=== PATIENT | female | born 1935 | race African-American/Black ===

== ENCOUNTER 2016-10-11 11:05 | Inpatient (IN) | payer MEDICARE ==
[~2016-10-11] VITALS: Ht 160 cm; Wt 59.1 kg
--- NOTE | ~2016-10-11 | 2DMMODE ---
[facility] [place] [address] 2 D/M-MODE ECHOCARDIOGRAM Name: JAQUAN BOURGEOIS Room #: 306-P [facility] IN .#: [id number] Admission: 10/11/16 Attend Phys: Kenneth Butterfield MD Discharge: Date of : 39 Date of Service: 10/12/16 1208 Report #: [id number] THIS REPORT FOR: //name// Transthoracic Echocardiography Ordering physician: Sumeet Montalvo Referring physician: Dameon Callahan Francisco J. Creative Designer: JASON Horton Indications/History: CHF, Cardiomyopathy. BP: 104 / HR: 73bpm Height: 62in Weight: 133.7lb 71 Study data: M-mode, complete 2D, complete spectral Doppler, and color Doppler. Location: Bedside. Routine. Image quality was good. 2D measurements Normal Normal LVID ED 61mm 36-57 IVS ED 9.4mm 6-11 LVID ES 53.3mm 23-40 LVPW ED 9.5mm 6-11 LA volume 40ml/m2 16-28 AoRoot diam 25.3mm 21-37 index ED LVOT diameter 17mm 18-23 Findings: Left ventricle: The cavity size was dilated. Wall thickness was normal. Systolic function was severely reduced. The estimated ejection fraction was in the range of 20% to 25%. Severe diffuse hypokinesis. Right ventricle: The cavity size was dilated. Systolic function was low normal by visual assessment. Ventricular septum: Paradoxical motion. Right atrium: The atrium was dilated. Left atrium: The atrium was dilated. Volume index: 40ml/m2 (S). Aortic valve: Trileaflet; mildly thickened, mildly calcified leaflets. Doppler: There was no stenosis. Mild to moderate regurgitation. Peak velocity: 111.4cm/s [facility] [address] [place] [address] 2 D/M-MODE ECHOCARDIOGRAM Name: JAQUAN BOURGEOIS Room #: 306-P [facility] IN M.R.#: [id number] Admission: 10/11/16 Attend Phys: Kenneth Butterfield MD Discharge: Date of : 39 Date of Service: 10/12/16 1208 Report #: [id number] (S). Mitral valve: Mildly calcified annulus. Doppler: There was no evidence for stenosis. Moderate to severe regurgitation. Peak E-wave velocity: 157.7cm/s. Peak gradient: 9.9mm Hg (D). Peak A-wave velocity: 128.5cm/s. Tricuspid valve: Structurally normal valve. Doppler: There was no evidence for stenosis. Severe regurgitation. Regurgitant peak velocity: 244.4cm/s. Peak RV-RA gradient: 24mm Hg (S). Pulmonic valve: Structurally normal valve. Doppler: There was no evidence for stenosis. Mild regurgitation. Pericardium: There was no pericardial effusion. Pleura: There was a moderate-sized left pleural effusion. Aorta: Aortic root: The aortic root was normal in size. Pulmonary artery: Systolic pressure was estimated to be 34mm Hg. Diastolic function: Doppler parameters are consistent with an irreversible restrictive pattern, indicative of decreased left ventricular diastolic compliance and/or increased left atrial pressure (grade 4 diastolic dysfunction). Systemic veins: Inferior vena cava: The vessel was dilated; the respirophasic diameter changes were blunted (< 50%). Conclusions 1. Left ventricle: The cavity size was dilated. Wall thickness was normal. Systolic function was severely reduced. The estimated ejection fraction was in the range of 20% to 25%. Severe diffuse hypokinesis. 2. Ventricular septum: Paradoxical motion. 3. Right ventricle: The cavity size was dilated. 4. Right atrium: The atrium was dilated. 5. Left atrium: The atrium was dilated. 6. Aortic valve: Trileaflet; mildly thickened, mildly calcified leaflets. Mild to moderate regurgitation. 7. Mitral valve: Mildly calcified annulus. Moderate to severe regurgitation. 8. Pulmonic valve: Mild regurgitation. 9. Tricuspid valve: Severe regurgitation. 10. Pericardium, extracardiac: There was a moderate-sized left pleural effusion. 11. Pulmonary arteries: Systolic pressure was estimated to be 34mm Hg. [facility] [place] [address] 2 D/M-MODE ECHOCARDIOGRAM Name: VIVEK BOURGEOISDENEEN Room #: 306-P [facility] IN ..#: [id number] Admission: 10/11/16 Attend Phys: Kenneth Butterfield MD Discharge: Date of : 39 Date of Service: 10/12/16 1208 Report #: [id number] 12. Inferior vena cava: The vessel was dilated; the respirophasic diameter changes were blunted (< 50%). <ELECTRONICALLY SIGNED> By: Sumeet Montalvo MD 10/12/169 07 28 Suemet Montalvo MD /yas
--- NOTE | ~2016-10-11 | EKG ---
[place] [address] [place] [address] ELECTROCARDIOGRAM REPORT Name: JAQUAN BOURGEOIS Room #: [facility].#: [id number] Admission: Attend Phys: Discharge: Date of : 37 Report #: [id number] THIS REPORT FOR: //name// [facility] ED Test Date: 2016-10-11 Test Time: 11:48:43 Pat Name: JAQUAN BK Department: Room: Gender: F Supervisor Laboratory Animal Facility: [facility] : 1935 Requested By: Pedro Andrade Order Number: [id number] MD: Gregg Singh Measurements Intervals [place] Rate: 69 P: 84 [place]: 141 QRS: 16 QRSD: 158 T: QT: 459 QTc: 492 Interpretive Statements Sinus rhythm Probable left atrial enlargement Left bundle branch block Compared to ECG 05/11/2016 15:16:31 No significant changes Electronically Signed On 10-11-2016 12:12:51 POTTERY MACHINE OPERATOR by Gregg Singh [email or web address] <ELECTRONICALLY SIGNED> By: Gregg Singh MD 10/11/16 1212 1148 1148 MD DAVID Wilkins
--- NOTE | ~2016-10-11 | HC ---
[facility] [place] [address] CONSULTATION Name: JAQUAN BOURGEOIS Room #: 306-P ADM IN M.R.#: [id number] Admission: 10/11/16 Attend Phys: Kenneth Butterfield MD Discharge: Date of : 37 Report #: [id number] THIS REPORT FOR: //name// CC: Dameon Butterfield HISTORY OF PRESENT ILLNESS: This is a very pleasant female who has a history of cardiomyopathy and an ejection fraction of 25% previously, noted having profound lower extremities edema to the point of having weeping lesions. She stated she has also noted her belly increasing. She also notes the right kidney over the last several weeks of the 20 pounds, but noted that it is due to gradual increase in weight over that time interval. She describes not having any specific symptomatology, but just not feeling well and not noted exactly what it was until become profoundly short of breath and sought medical attention. She apparently has been seen by Dr. Anderson in the past and has a history of cardiomyopathy with an ejection fraction of less than 25%. She has no syncope or near syncope. No palpitations. She has never had a discussion in the past concerning not improved left ventricular ejection fraction and indications for biventricular pacing or ICD. PAST MEDICAL HISTORY: 1. Cardiomyopathy as stated above. 2. Hypertension. 3. Heart failure with reduced ejection fraction, not optimized on medications, missing spironolactone. 4. Dyslipidemia. MEDICATIONS: At home were losartan, bethanechol, Flomax, Lasix, Klor-Con, Coreg, Celexa, Lipitor. ALLERGIES: No known drug allergies. PAST SURGICAL HISTORY: Significant for cervical disk removal. SOCIAL HISTORY: The patient does consume alcohol socially. Does not use recreational drugs and is not a smoker. REVIEW OF SYSTEMS: Except for symptoms previously mentioned and those commensurate with comorbid state, the 10-point review of systems is negative. DIAGNOSTIC DATA AND LABORATORY STUDIES: The electrocardiogram demonstrated normal sinus rhythm, nonspecific ST-T wave changes. Laboratory demonstrates potassium of 4.0. BUN and creatinine are 27 and 0.1. Troponin is less than 0.04. BNP is 15,145. H and H is 13.6 and 42.5 with a platelet count of 136,000. [address] [address] CONSULTATION Name: JAQUAN BOURGEOIS Room #: [address] [place] [address] [place] .R.#: [id number] Admission: 10/11/16 Attend Phys: Kenneth Butterfield MD Discharge: Date of : 37 Report #: [id number] RADIOLOGIC: Chest x-ray demonstrates cardiomegaly with bilateral effusion and an infiltrate is noted. PHYSICAL EXAMINATION: GENERAL: Well developed, well nourished female resting comfortably in no acute distress. VITAL SIGNS: Noted and reviewed in the chart. HEENT: Normocephalic, atraumatic. Pupils are equal, round, reactive to light and accommodation. Extraocular muscles are intact. Sclerae and conjunctivae are anicteric. NECK: JVD is normal. Carotid upstrokes are bilaterally symmetrical. No bruits are heard. No thyromegaly. No lymphadenopathy. LUNGS: Clear to auscultation. No wheezes, rhonchi or crackles. No CVA tenderness. CARDIAC: Demonstrates a regular rhythm. Normal first and second heart sounds. Systolic murmur from the base to apex axilla was noted. ABDOMEN: Distended succussion wave is noted. Bowel sounds are present. Enlarged liver is noted 2 cm below the right costal margin. EXTREMITIES: Moderate to severe bilateral lower extremity edema which is pitting from the knees to the toes. NEUROLOGIC: Cranial nerves 2-12 are grossly normal and symmetrical. PSYCHIATRIC: Alert, oriented with normal affect. SKIN: Warm and dry. IMPRESSION: 1. Congestive heart failure, decompensated. The patient is to optimize the medications. I do not see any reason why she is not on spironolactone and we may need to add that. In addition to this, the question of ICD placement or biventricular pacer if she fulfills criteria of appropriate discussion. Diurese more slowly at the present time as you are doing and become more vigorous with the diuresis and discuss this further with the patient. 2. Heart failure with reduced ejection fraction. Significant left ventricular function is noted, will need to optimize meds as stated above. 3. Dyslipidemia. Discussed [employer] step 1 diet. She does voice understanding. 4. Hypertension. Need to make sure that her blood pressure is adequately controlled. With ejection fraction now low, need to make sure the systolic pressures are under 120 and preferably under 110. We will need to optimize meds to achieve these goals. <ELECTRONICALLY SIGNED> By: Sumeet Montalvo MD 10/12/16 2224 [id number] Sumeet Montalvo MD /nt
[~2016-10-11 11:05] MED LIST: ACETAMINOPHEN325 M1 PO; ALEVE220 MG PO; ASPIR 8181 MG PO; ATACAND32 MG; ATACAND8 MG; ATENOLOL 25 MG25 M1 PO; ATENOLOL 50 MG50 M1 PO; CARVEDILOL25 MG PO; FLOMAX0.4 MG PO; KLOR-CON 1010 MEQ PO; LASIX 20 MG TAB20 MG PO; LIPITOR20 MG PO; LOSARTAN POTAS100 MG PO; MEGESTROL ACETA40 MG PO; MIRALAX255 GM PO; NORFLEX100 MG PO; PREDNISONE 10 M10 MG; URECHOLINE 25 M25 MG PO; VALACYCLOVIR1000 MG PO; [UNRECOGNIZED DRUG - OTHER] PO
[2016-10-11 11:07] VITALS: BP 109/68
[2016-10-11] MEDS ORDERED: CELEXA10 MG PO (12:22)
[2016-10-11 12:45] LABS: HEMATOCRIT 42.5 % (37.0-47.0); HEMOGLOBIN 13.6 gm/dL (12.0-15.0); MCH 31.2 pg (26.0-34.0); MCHC 31.9 % (28.0-37.0); MCV 97.5 fL (80.0-100.0); PLATELET COUNT 136 thou/uL (150-400); RBC 4.36 mil/uL (4.20-5.00); RDW 16.4 % (10.5-14.5); WBC 4.9 thou/uL (4.0-11.0)
[2016-10-11 12:47] LABS: MANUAL DIFF YES
[2016-10-11 12:54] LABS: ANION GAP 9 mmol/L (7-16); BUN 27 mg/dL (7-18); CALCIUM 9.7 mg/dL (8.5-10.1); CHLORIDE 103 mmol/L (98-107); CO2 25 mmol/L (21-32); GLUCOSE 97 mg/dL (70-99); SODIUM 137 mmol/L (136-145)
[2016-10-11 13:07] LABS: NT-PRO BRAIN NAT PEPTIDE 15945 pg/mL (<300); TROPONIN-I < 0.04 ng/mL (<0.04-0.07)
[2016-10-11 13:09] LABS: ABSOLUTE NEUTROPHILS 3.2 thou/uL (1.4-8.2); ANISOCYTOSIS 1+; LARGE PLATELETS RARE; TOTAL CELL COUNT 100
[2016-10-11 15:08] VITALS: BP 115/70
[2016-10-11 15:22] VITALS: BP 121/67
[2016-10-11 19:25] VITALS: BP 107/69
[2016-10-11 20:00] VITALS: BP 111/64
[2016-10-12] VITALS: BP 94/58
[2016-10-12 01:05] LABS: HEMATOCRIT 39.8 % (37.0-47.0); HEMOGLOBIN 12.7 gm/dL (12.0-15.0); MCV 96.8 fL (80.0-100.0); RBC 4.11 mil/uL (4.20-5.00); RDW 16.3 % (10.5-14.5); WBC 4.6 thou/uL (4.0-11.0)
[2016-10-12 01:22] LABS: ALBUMIN 3.1 g/dL (3.4-5.0); CALCIUM 8.8 mg/dL (8.5-10.1); POTASSIUM 4.2 mmol/L (3.5-5.1); TOTAL BILIRUBIN 1.2 mg/dL (<0.1-1.0); TOTAL PROTEIN 6.3 g/dL (6.4-8.2)
[2016-10-12 04:00] VITALS: BP 117/73
[2016-10-12 08:20] VITALS: BP 104/71
[2016-10-12 16:05] VITALS: BP 114/67
[2016-10-12 20:00] VITALS: BP 111/69
[2016-10-13] VITALS (7 sets, daily range): BP systolic 106–127; BP diastolic 60–71
[2016-10-14 04:05] VITALS: BP 110/60
[2016-10-14 08:30] VITALS: BP 112/66
[2016-10-14 11:25] LABS: CALCIUM 9.2 mg/dL (8.5-10.1); CREATININE 1.2 mg/dL (0.6-1.3); MAGNESIUM 2.1 mg/dL (1.8-2.4); POTASSIUM 4.4 mmol/L (3.5-5.1)
[2016-10-14 16:35] VITALS: BP 114/68
[2016-10-14 20:13] VITALS: BP 98/59
[2016-10-15 04:04] VITALS: BP 125/73
[2016-10-15 06:03] LABS: CALCIUM 9.1 mg/dL (8.5-10.1); CREATININE 1.1 mg/dL (0.6-1.3); POTASSIUM 4.5 mmol/L (3.5-5.1)
[2016-10-15 07:50] VITALS: BP 114/65
[2016-10-15 13:58] VITALS: BP 99/51
[2016-10-15 19:32] VITALS: BP 99/68
[2016-10-16 04:19] VITALS: BP 110/66
[2016-10-16 05:43] LABS: HEMATOCRIT 39.1 % (37.0-47.0); HEMOGLOBIN 12.4 gm/dL (12.0-15.0); MANUAL DIFF YES; MCH 30.9 pg (26.0-34.0); MCHC 31.8 % (28.0-37.0); MCV 97.3 fL (80.0-100.0); PLATELET COUNT 119 thou/uL (150-400); RBC 4.01 mil/uL (4.20-5.00); RDW 16.3 % (10.5-14.5); WBC 4.7 thou/uL (4.0-11.0)
[2016-10-16 05:58] LABS: CALCIUM 9.1 mg/dL (8.5-10.1); CREATININE 1.1 mg/dL (0.6-1.3); MAGNESIUM 2.1 mg/dL (1.8-2.4); POTASSIUM 4.1 mmol/L (3.5-5.1)
[2016-10-16 06:25] LABS: ABSOLUTE NEUTROPHILS 2.9 thou/uL (1.4-8.2); ANISOCYTOSIS 1+; TOTAL CELL COUNT 100
[2016-10-16 06:26] LABS: LARGE PLATELETS RARE
[2016-10-16 08:01] VITALS: BP 100/67
[2016-10-16 14:51] VITALS: BP 110/67
[2016-10-16 20:00] VITALS: BP 110/62
[2016-10-17 06:34] LABS: CALCIUM 9.2 mg/dL (8.5-10.1); CREATININE 1.1 mg/dL (0.6-1.3); POTASSIUM 4.3 mmol/L (3.5-5.1)
[2016-10-17 09:25] VITALS: BP 104/66
[2016-10-17] MEDS ORDERED: COZAAR 50 MG TA50 M1 PO (11:54)
[2016-10-17] MEDS ORDERED: PROTONIX40 M2 PO (11:54)
[2016-10-17] MEDS ORDERED: SPIRONOLACTONE25 M1 PO (11:54)
[2016-10-17] MEDS ORDERED: MIRALAX17 GM PO (11:54)
[2016-10-17] MEDS ORDERED: LASIX 20 MG TAB20 MG PO (11:54)
[2016-10-17] MEDS ORDERED: COLACE100 MG PO (11:54)
[2016-10-17] MEDS ORDERED: ENOXAPARIN40 MG/0.1 SUBQ (11:54)
[2016-10-17 14:57] VITALS: BP 96/60
[2016-10-18 04:00] VITALS: BP 108/65
[2016-10-18 09:09] VITALS: BP 117/72
[2016-10-18 16:35] VITALS: BP 104/69
[2016-10-18 20:55] VITALS: BP 110/60
[2016-10-19 04:28] LABS: CALCIUM 8.9 mg/dL (8.5-10.1); CREATININE 1.2 mg/dL (0.6-1.3); POTASSIUM 4.5 mmol/L (3.5-5.1)
[2016-10-19 04:35] VITALS: BP 117/68
[2016-10-19 07:40] VITALS: BP 103/63
[2016-10-19 12:40] VITALS: BP 99/57
[2016-10-19 16:54] VITALS: BP 112/64
[2016-10-19 20:00] VITALS: BP 96/55
[2016-10-20 04:02] VITALS: BP 106/58
[2016-10-20 08:33] VITALS: BP 110/52
== END 2016-10-20 15:15 | DRG 292 ==
LOC: ER 11:05 → EROBS 14:06 → 3N 14:06
PROVIDERS: Emergency Medicine; Internal Medicine; Internal Medicine Endocrinology, Diabetes & Metabolism; Nurse Practitioner
DX: I11.0 Hypertensive heart disease with heart failure (principal); E44.1 Mild protein-calorie malnutrition; I50.43 Acute on chronic combined systolic (congestive) and diastolic (congestive) heart failure; F32.9 Major depressive disorder, single episode, unspecified; I42.9 Cardiomyopathy, unspecified; E78.5 Hyperlipidemia, unspecified; K59.00 Constipation, unspecified; Z98.890 Other specified postprocedural states; Z79.899 Other long term (current) drug therapy
CPT/HCPCS: 10096

== ENCOUNTER → 2018-12-16 | Outpatient (CLI) | payer MEDICARE ==
[~2018-12-16] MED LIST changes: +CELEXA10 MG PO; +COLACE100 MG PO; +COZAAR 50 MG TA50 M1 PO; +DEMADEX20 MG PO; +ENOXAPARIN40 MG/0.1 SUBQ; +ENTRESTO 49 MG1 EACH PO; +MIRALAX17 GM PO; +PROTONIX40 M2 PO; +SPIRONOLACTONE25 M1 PO
== END ==
LOC: RAD 14:54
DX: M79.89 Other specified soft tissue disorders (principal); R14.0 Abdominal distension (gaseous); J90 Pleural effusion, not elsewhere classified; I51.7 Cardiomegaly; I87.8 Other specified disorders of veins; J98.11 Atelectasis; M16.11 Unilateral primary osteoarthritis, right hip; Z96.642 Presence of left artificial hip joint

== ENCOUNTER 2018-12-21 15:09 | Inpatient (IN) | payer MEDICARE ==
[~2018-12-21] VITALS: Ht 160 cm; Wt 50.4 kg
--- NOTE | ~2018-12-21 | HC ---
[facility] [place] [address] [place] [address] CONSULTATION Name: JAQUAN BOURGEOIS Room #: 227-P ADM IN M.R.#: [id number] Admission: 12/21/18 ������������������ Attend Phys: Isac Gavin MD Discharge: ������������������ Date of : 37 Report #: [id number] THIS REPORT FOR: //name// CC: Isac Callahan DATE OF SERVICE: 12/23/2018 HISTORY OF PRESENT ILLNESS: The patient is an 83-year-old -[place] female who had a prior recent hip replacement in 08/2018 at [facility], complicated by congestive heart failure exacerbation and a cardiac arrest. She was treated in the ICU per report, not desired to go through an AICD, was apparently transferred to [facility] and gradually able to return back home on 11/17/2018. She has been at home, although at a limited level with her closely involved. She was readmitted at this time to [facility] with increased shortness of breath. Noted to have acute on chronic congestive heart failure, cardiomyopathy, acute renal insufficiency. She also has some abdominal bloating with abdominal ultrasound showing some small ascites, small bilateral pleural effusions, likely constipation with Gastroenterology involved. We are seeing her in rehabilitation medicine consultation. PAST MEDICAL HISTORY: As noted above. She has a history of hypertension, frequent falls, degenerative arthritis, acute renal insufficiency, chronic kidney disease stage IV, cervical disk removal in 2014. There is note of some history of spinal problems. PAST SURGICAL HISTORY: As noted above. MEDICATIONS: Please see the full medication listing. These include vitamins, herbals, and supplements per report. ALLERGIES: No known drug allergies. SOCIAL HISTORY: House, spouse, 2 steps in, 3 inside, had electric scooter and used a 4-wheeled walker, although the needed to help her whenever she was out, but she was not ambulating independently. She had a bath aide 3 times per week. REVIEW OF SYSTEMS: Frustrated with her current condition. No current complaints of chest pain, shortness of breath, abdominal discomfort. Did not offer any complaints of headaches. No fever or chills. No bowel or bladder changes. No other focal extremity pain complaints. Complains of overall generalized weakness. PHYSICAL EXAMINATION: [facility] [address] [place] [address] CONSULTATION Name: JAQUAN BOURGEOIS Room #: [address] [place] [address] [place] ..#: [id number] Admission: 12/21/18 ������������������ Attend Phys: Isac Gavin MD Discharge: ������������������ Date of : 37 Report #: [id number] GENERAL: An 83-year-old slender -Austrian female in no obvious distress. She is frustrated and rather negative in her comments. Defers some the answers to her . VITAL SIGNS: Temperature 97.9, pulse 70, respirations 18, blood pressure 107/53. She is alert. She appears appropriate. Follows basic 1 step commands. Facies are symmetric. HEENT: Otherwise appeared benign. EXTREMITIES: Functional range of motion of both upper extremities. Strength is grade 4- to 3+/5. DTRs are trace to 1. She does have some abdominal bloating as noted. Lower extremities, no focal calf swelling, 1+ distal lower extremity edema to 2+ bilateral lower extremity edema. I would grade her strength probably at 3+/5. Tone appeared to be intact. Sit to stand was min assist. Gait was mod assist, 2 steps handheld assistance. ASSESSMENT: An 83-year-old -Aust[place] female with the following problems: 1. Cardiac debilitation with medical complexity with generalized debilitation. 2. Acute on chronic systolic congestive heart failure. 3. Cardiomyopathy, status post cardiac arrest. She refuses AICD. 4. Renal insufficiency. 5. Status post recent hip replacement. 6. Degenerative arthritis. 7. History of frequent falls. PLAN: The patient has been living in the home setting with her closely involved. She has some gait problems, but has been closely assisting the patient and appears very open and motivated to try to get her back to the home setting if she is stronger. She does have multiple medical comorbidities. She certainly may be a candidate for a short acute in-hospital inpatient rehabilitation stay to further improve her strength, endurance and mobility issues while she is being concurrently monitored with her multiple medical issues with the multiple data governance consultant physicians that are following her including Internal Medicine, Cardiology, Geriatrics and Gastroenterology. They could continue to follow if patient were transferred over to the acute rehab hernandez. At this point, I am going to have the therapist continue to work with her and we will follow along with you regarding her rehab therapy needs. Thank you for asking us to assist in this patient's care. ��������������������������������������������� ���������������������������������������� By: ��������������������������������������������� 1230 1905 Dameon Whiting MD /nt
[~2018-12-21 15:09] MED LIST changes: -DEMADEX20 MG PO; -ENTRESTO 49 MG1 EACH PO
[2018-12-21 15:10] VITALS: BP 104/49
[2018-12-21 16:04] LABS: BE(vivo) -4.8 mmol/L (-2 to +3); HCO3 17.5 mmol/L (22.0-26.0); PCO2 25.4 mmHg (35.0-45.0); PO2 78.9 mmHg (80.0-100.0); pH 7.455 (7.360-7.450); sO2 96.4 % (92.0-98.0)
[2018-12-21 16:31] LABS: ANION GAP 13 mmol/L (7-16); BUN 44 mg/dL (7-18); CALCIUM 9.5 mg/dL (8.5-10.1); CHLORIDE 102 mmol/L (98-107); CO2 20 mmol/L (21-32); CREATININE 1.5 mg/dL (0.6-1.0); GLUCOSE 92 mg/dL (74-106); POTASSIUM 4.9 mmol/L (3.5-5.1); SODIUM 135 mmol/L (136-145)
[2018-12-21 16:41] LABS: ALBUMIN 3.4 g/dL (3.4-5.0); SGOT 22 U/L (15-37); TOTAL BILIRUBIN 1.6 mg/dL (<0.1-1.0); TOTAL PROTEIN 7.4 g/dL (6.4-8.2); TROPONIN-I <0.06 ng/mL (<0.06)
[2018-12-21 16:52] LABS: SGPT 10 U/L (30-65)
[2018-12-21 17:12] LABS: HEMATOCRIT 40.8 % (37.0-47.0); HEMOGLOBIN 13.3 gm/dL (12.0-15.0); MCH 32.5 pg (26.0-34.0); MCHC 32.6 g/dL (28.0-37.0); MCV 99.8 fL (80.0-100.0); RBC 4.09 mil/uL (4.20-5.00); RDW 18.9 % (10.5-14.5); WBC 4.6 thou/uL (4.0-11.0)
[2018-12-21 17:35] LABS: ABSOLUTE NEUTROPHILS 2.5 thou/uL (1.4-8.2)
[2018-12-21 17:36] LABS: ANISOCYTOSIS 2+; BURR CELLS 1+; POIKILOCYTOSIS 2+; TARGET CELLS OCCASIONAL; TEARDROPS OCCASIONAL
[2018-12-21 17:37] LABS: PLATELET COUNT 89 thou/uL (150-400)
--- NOTE | 2018-12-21 17:38 | EKG ---
[place] [address] [address] [place] [address] ELECTROCARDIOGRAM REPORT Name: JAQUAN BOURGEOIS [id number] ������������������ Admission: 12/21/18 ������������������ Attend Phys: Discharge: ������������������ Date of : 37 Report #: [id number] ����������������������������������������������������������������� [id number] THIS REPORT FOR: //name// [facility] ED Test Date: 2018-12-21 Test Time: 15:38:18 Pat Name: JAQUAN BOURGEOIS Department: Room: Gender: F Jack Machine Operator: NEALLavonne : 1935 Requested By: Aaron Monroy Order Number: [id number] MD: Sumeet Montalvo Measurements Intervals [place] Rate: 74 P: 27 CT: 139 QRS: -27 QRSD: 161 T: 145 QT: 446 QTc: 495 Interpretive Statements Sinus rhythm left atrial enlargement Left bundle branch block Compared to ECG 10/11/2016 11:48:43 No significant changes Electronically Signed On 12-21-2018 17:38:25 CDT by Sumeet Montalvo [email or web address] ��������������������������������������������� <ELECTRONICALLY SIGNED> ���������������������������������������� By: Sumeet Montalvo MD ��������������������������������������������� 12/21/18 1738 153 153 Sumeet Montalvo MD /MIKO
[2018-12-21 18:00] LABS: URINE BILIRUBIN NEGATIVE (Negative); URINE BLOOD 2+ (Negative); URINE CLARITY CLEAR; URINE COLOR YELLOW; URINE GLUCOSE-RANDOM* NEGATIVE (Negative); URINE KETONES NEGATIVE (Negative); URINE NITRITE-REFLEX NEGATIVE (Negative); URINE PROTEIN (DIPSTICK) NEGATIVE (Negative); URINE UROBILINOGEN 0.2 E.U./dl (0.2-1.0)
[2018-12-21 18:02] LABS: URINE LEUKOCYTES-REFLEX 3+ (Negative)
[2018-12-21 18:10] VITALS: BP 104/61
[2018-12-21 18:18] LABS: BACTERIA-REFLEX >30 Many /HPF (None Seen); SQUAMOUS 4-10 Moderate /LPF (0-3); URINE WBC-REFLEX >25 Many /HPF (0-5)
[2018-12-21 18:19] LABS: CASTS None Seen /LPF (None Seen); CRYSTALS None Seen /LPF (None Seen); URINE RBC 0-2 Rare /HPF (0-2)
[2018-12-21] MEDS ORDERED: DEMADEX20 MG PO (18:28)
[2018-12-21] MEDS ORDERED: ENTRESTO 49 MG1 EACH PO (18:29)
[2018-12-21 18:31] VITALS: BP 114/59
[2018-12-21 18:54] VITALS: BP 147/67
[2018-12-21 23:32] VITALS: BP 104/56
[2018-12-22 03:50] VITALS: BP 111/64
[2018-12-22 04:12] LABS: HEMATOCRIT 40.6 % (37.0-47.0); MCH 32.1 pg (26.0-34.0); MCHC 32.1 g/dL (28.0-37.0); MCV 100.2 fL (80.0-100.0); RBC 4.05 mil/uL (4.20-5.00); RDW 19.6 % (10.5-14.5); WBC 4.3 thou/uL (4.0-11.0)
[2018-12-22 04:25] LABS: CALCIUM 8.8 mg/dL (8.5-10.1); CREATININE 1.5 mg/dL (0.6-1.0); POTASSIUM 4.5 mmol/L (3.5-5.1)
[2018-12-22 10:50] VITALS: BP 102/58
--- NOTE | 2018-12-22 16:31 | NUR ---
met with patient who reports "I hope you dont have alot of questions, Clair been questioned all day." reviewed role of casemgt. Patient reports she resides at home with spouse. She has a walker, wc, grab bars in shower. She has HH but cannot recall agency. Sp with spouse. He reports patient with [facility] was at [facility]. He reports she did not go to [facility] re[facility] she then transitioned to [facility]. She dc to home Nov 17 and has been rec HH from [facility]. Spouse reports he also uses a walker. He reports patients scooter does not fit well in home and patient uses wc. Patient reports he has dtrs but they work during day. He drives, cooks meals and assists with some of her care. He reports HH assists with bathing. Patient hopeful she cont to work with therapy in hosptial. He wants casemgt to inquire into if can aquire rolator walker for home [id number] is model number at [facility] if can find comparable. terri abdi in process.
[2018-12-22 17:33] VITALS: BP 107/56
[2018-12-22 19:38] VITALS: BP 119/73
[2018-12-22 23:33] VITALS: BP 114/62
--- NOTE | 2018-12-23 03:34 | NUR ---
ASSUMED PT CARE AT 1900. PT A/OX4, OCCASIONALLY FORGETFUL. VITAL SIGNS STABLE, ASSESSMENT CHARTED. NO COMPLAINTS OF PAIN/CHEST PAIN. MELVIN IN PLACE. PT RESTED WELL THROUGH THE NIGHT. PROGRESSING TOWARD PLAN OF CARE. WILL CONTINUE TO MONITOR
[2018-12-23 04:40] VITALS: BP 107/65
[2018-12-23 05:07] LABS: CALCIUM 8.9 mg/dL (8.5-10.1); CREATININE 1.4 mg/dL (0.6-1.0); POTASSIUM 4.1 mmol/L (3.5-5.1)
[2018-12-23 08:00] VITALS: BP 118/48
[2018-12-23 08:35] VITALS: BP 118/48
[2018-12-23 11:33] VITALS: BP 107/53
[2018-12-23 11:54] LABS: FOLIC ACID 30.2 ng/mL (8.6-58.9)
--- NOTE | 2018-12-23 16:04 | NUR ---
ASSUMED CARE OF PT AT SHIFT CHANGE. ASSESSMENTS CHARTED. MEDS GIVEN PER DEC. PT ALERT AND ORIENTED, FORGETFUL AT TIMES. VSS, SOFT BP THROUGHOUT SHIFT. NO C/O PAIN, DENIES CHEST PAIN. O2 SATS WNL ON ROOM AIR, PT GETS SOB WITH ACTIVITY AND AT REST, RESOLVES, QUICKLY, O2 SATS WNL WHEN SOB. ABDOMEN CONTINUES TO BE DISTENDED, GI FOLLOWING. URINE OUTPUT ADEQUATE, PT HAD BM THIS SHIFT. APPETITE CONTINUES TO BE LESS THAN ADEQUATE, ENCOURAGEMENT PROVIDED. AT BEDSIDE. PT ELIGIBLE FOR TRANSFER TO , REPORT CALLED TO NURSE. TELE REMOVED, PT TRANSFERRED TO AT APPROX 1530 WITH AND ALL BELONGINGS BY NURSE STAFF.
--- NOTE | 2018-12-23 20:05 | NUR ---
PATIENT TRANSFERRED FROM , REPORT FROM [facility]/RN. PATIENT ALERT AND ORIENTED X 3 CAN BE FORGETFUL. PATIENT DENIES PAIN. PATIENT HAS RIGHT UPPER MIDLINE DL. WILL CONTINUE TO MONITOR.
--- NOTE | 2018-12-24 05:12 | NUR ---
Pt A/OX3 with forgetfulness noted but able to make needs known. Denies pain on assessment.VSS.Pt been resting though the shift and hasn't gotten out of the bed repositioned from side to side with a wedge pillow. Has a congested cough with white phlegm noted, GOLDSTEIN. Capone patent draining dark yellow to DD.Encouraged to voice needs as needed.Bed alarm on and bed in lowest position.Resting with eyes closed at this time with no distress noted,will continue to monitor pt.
--- NOTE | 2018-12-24 11:47 | NUR ---
SW reviewed chart and spoke with nursing and attending physician. Pt was transferred to [facility] from and is medically stable for discharge today. 5N consulted and is following pt for admission to in acute rehab. Pt has been to [facility] for SNF level of care recently. SW met with pt at bedside to provide update and discuss discharge plan. Pt is agreeable with going to if insurance authorizes. Pt states she would not want to return to [facility] for SNF. SW to provide pt with alternate SNFs if needed. 2N SW provided info regarding rollator walker when pt returns home. Therapy to assess pt if she would be appropriate to have a roller walker. Awaiting input from 5N at this time. SW is following to assist as needed with discharge planning.
--- NOTE | 2018-12-24 16:39 | NUR ---
FAXED REFERRAL TO [facility] AND LEFT MSG WITH PAUL IN ADM. DCP TO FOLLOW.
--- NOTE | 2018-12-24 18:05 | NUR ---
ASSUMED CARE OF PATIENT AT 0715, PATIENT ALERT AND ORIENTED X 2-3, PATIENT FORGETFUL. PATIENT UP WITH ASSIST X 2 WITH GAIT BELT AND WALKER. PATIENT VERY WEAK, AND GETS SOB WITH ANY EXERTION. PATIENT DENIES PAIN THIS SHIFT. PATIENT ASSISTED UP TO THE CHAIR FOR BREAKFAST, POOR APPETITE. PATIENT WENT DOWN FOR CXR THIS AM. PATIENT DID MOBILITY EXERCISES IN BED WITH PHYSICAL THERAPY. PATIENT HAS RIGHT UPPPER ARM MID LINE DOUBLE LUMEN. PATIENT HAD MELVIN THIS AM, DISCONTINUED AT 1800, 300CC. WILL CONTINUE TO MONITOR.
[2018-12-24 19:51] VITALS: BP 103/62
--- NOTE | 2018-12-25 01:03 | NUR ---
Pt A/OX3 and forgetful but able to voice needs as needed.Denies pain on assessment.VSS.Pt requiring max assist up to the BSC,weak and gets GOLDSTEIN oxygen put on at 1L/NC for comfort.Abdomen still distended,denies pain and had a BM yesterday. no N/V reported.Double lumen Midline in place and patent on RUE with good blood return. Bed alarm,bed in lowest position and call light kept within reach.Will continue to monitor pt.
[2018-12-25 08:00] VITALS: BP 108/67
[2018-12-25 08:48] LABS: HEMATOCRIT 39.4 % (37.0-47.0); HEMOGLOBIN 12.9 gm/dL (12.0-15.0); MCH 32.2 pg (26.0-34.0); MCHC 32.6 g/dL (28.0-37.0); MCV 98.8 fL (80.0-100.0); RBC 3.99 mil/uL (4.20-5.00); RDW 19.4 % (10.5-14.5); WBC 3.7 thou/uL (4.0-11.0)
[2018-12-25 09:05] LABS: CALCIUM 9.3 mg/dL (8.5-10.1); CREATININE 1.3 mg/dL (0.6-1.0)
--- NOTE | 2018-12-25 11:05 | 2DMMODE ---
[facility] [address] 2 D/M-MODE ECHOCARDIOGRAM Name: MARCI BOURGEOISDAT Room #: 227-P [facility] IN .R.#: [id number] ������������� Admission: 12/21/18 ������������� Attend Phys: Isac Gavin MD Discharge: ��� ������������� ��� Date of : 39 Date of Service: 12/25/18 1105 �� Report #: [id number] �������� ��������������������������������������������[id number] THIS REPORT FOR: //name// APPROVED REPORT Study performed: 12/25/2018 09:45:44 EXAM: Comprehensive 2D, Doppler, and color-flow Echocardiogram Patient Location: Bedside Status: routine BSA: 1.50 HR: 76 bpm BP: 103/62 mmHg Rhythm: NSR Other Information Study Quality: Good Indications Dyspnea Cardiomyopathy Hypertension/HDD 2D Dimensions RVDd: 44.63 mm IVSd: 6.61 (7-11mm) LVOT Diam: 19.03 (18-24mm) LVDd: 64.34 mm PWd: 6.86 (7-11mm) Ascending Ao: 22.38 (22-36mm) LVDs: 61.52 (25-40mm) Aortic Root: 22.27 mm IVC: 21.00 mm Volumes Left Atrial Volume (Systole) Single Plane 4CH: 83.10 mL Single Plane 2CH: 51.94 mL LA ESV Index: 51.00 mL/m2 Aortic Valve AoV Peak Vishnu.: 1.04 m/s AO Peak Gr.: 4.36 mmHg LVOT Max P.57 mmHg LVOT Max V: 0.63 m/s RODO Vmax: 1.70 cm2 AI Vmax: 4.01 m/s AI Wake: 3.99 m/s2 AI PHT: 291.51 ms [facility] [address] [place] [address] 2 D/M-MODE [facility]OCARDIOGRAM [facility] #: [facility] IN ..#: [id number] ������������� Admission: 12/21/18 ������������� Attend Phys: Isac Gavin MD Discharge: ��� ������������� ��� Date of : 39 Date of Service: 12/25/18 1105 �� Report #: [id number] �������� ��������������������������������������������[id number] Mitral Valve E/A Ratio: 1.1 MV Decel. Time: 138.50 ms MV E Max Vishnu.: 1.59 m/s MV A Vishnu.: 1.49 m/s MV PHT: 40.16 ms IVRT: 59.98 ms Pulmonary Valve PV Peak Vishnu.: 0.68 m/s PV Peak Gr.: 1.85 mmHg Tricuspid Valve TR Peak Vishnu.: 3.74 m/s TR Peak Gr.: 56.00 mmHg PA Pressure: 71.00 mmHg Left Ventricle Left ventricle is dilated. There is severe global hypokinesis of the left ventricle. There is normal left ventricular wall thickness. Left ventricular ejection fraction is severely decreased. LVEF is 10-15%. Grade IV - fixed restrictive diastolic dysfunction. Right Ventricle Right ventricle is dilated. The right ventricular systolic function is normal. Atria Left atrium is dilated. Right atrium is dilated. Aortic Valve The aortic valve is midly sclerotic, trileaflet Moderate aortic regurgitation. There is no aortic valvular stenosis. Mitral Valve The mitral valve is normal in structure. Severe mitral regurgitation. No evidence of mitral valve stenosis. Tricuspid Valve The tricuspid valve is normal in structure. There is severe tricuspid regurgitation. Estimated PAP 70 mmHg. There is severe pulmonary hypertension. Pulmonic Valve The pulmonary valve is normal in structure. Mild pulmonic regurgitation. [facility] [address] [place] [address] 2 D/M-MODE ECHOCARDIOGRAM [facility]: [facility] Room #: 227-P [facility] IN .R.#: [id number] ������������� Admission: 12/21/18 ������������� Attend Phys: Isac Gavin MD Discharge: ��� ������������� ��� Date of : 39 Date of Service: 12/25/18 1105 �� Report #: [id number] �������� ��������������������������������������������[id number] [employer] The aortic root is normal in size. The inferior vena cava is dilated with no inspiratory collapse. Pericardium Small pericardial effusion. <Conclusion> Left ventricular ejection fraction is severely decreased. LVEF is 10-15%. Four chamber enlargement The aortic valve is midly sclerotic, trileaflet. Moderate aortic regurgitation, no stenosis. The mitral valve is normal in structure. Severe mitral regurgitation. There is severe tricuspid regurgitation. Estimated pulmonary artery pressure of 70 mmHg. Small pericardial effusion. ��������������������������������������������� <ELECTRONICALLY SIGNED> ���������������������������������������� By: Rod Lira MD, FACC ��������������������������������������������� 12/25/18 1105 1105 110 Rod Lira MD, FACC /INF
--- NOTE | 2018-12-25 12:33 | NUR ---
SW reviewed chart and spoke with nursing and attending physician. Pt is progressing towards goals for discharge. [facility] can accept pt from a clinical standpoint, and will submit for insurance authorization. Pt will need pacemaker interrogated prior to discharge. Awaiting insurance authorization at this time. KIERA is following to assist as needed with discharge planning.
--- NOTE | 2018-12-25 14:54 | NUR ---
PATIENT CARE WAS ASSUMED AT 0715.PATIENT IS ALERT AND ORIENTED X4, PT HAS DOME FORGETFULNESS AT TIMES.PT WAS PLACED IN CHAIR FOR BREAKFAST.IV IS INTACT, AND PATENT.PATIENT HAS NO COMPLAINS OF PAIN AT THIS TIME.CALL LIGHT, PHONE, AND PERSONAL BELONGINGS ARE WITHIN REACH.
[2018-12-25 21:00] VITALS: BP 94/59
--- NOTE | 2018-12-26 04:04 | NUR ---
PATIENT ALERT AND ORIENTED X3. THIS NURSE HAS NOT SEEN PATIENT AMBULATE OR UP IN THE CHAIR. BEDREST THROUGHOUT THE NIGHT. INCONTINENT OF URINE WITH SMALL SOFT STOOL. 02NC 2L WHICH PATIENT TAKES ON AND OFF. DENIES PAIN. MEDICATED WITH ZOFRAN AT BEGINNING OF SHIFT WITH GOOD RELIEF. PATIENT ABLE TO SLEEP OFF AND ON DUE TO C/O BEING "HOT". MOIST SOUNDING COUGH, HOWEVER, NO SPUTUM NOTED. ABDOMEN REMAINS DISTENDED. PATIENT REFUSED SQ HEPARIN AT 2200. SOME SOA NOTED WITH MOVEMENT IN BED. NOT USING CALL LIGHT, YELLING OUT AND BANGING, THIS NURSE ORIENTED HER TO THE CALL LIGHT AGAIN. REPOSITIONED OFTEN. RESTING QUIETLY. WILL MONITOR.
[2018-12-26 09:30] VITALS: BP 96/53
--- NOTE | 2018-12-26 10:54 | NUR ---
ASSUMED PT CARE AT 0700. ASSESSMENT COMPLETED AND IS CHARTED. VITAL SIGNS STABLE WITH EXCEPTION OF LOW BP AT 96/53. COREG HELD. PT IS ALERT/ORIENTED TO PERSON AND PLACE. PT IS UP IN CHAIR AND VERY DROWSY. UNABLE TO STAY AWAKE FOR ASSESSMENT. DOUBLE LUMEN MIDLINE TO RIGHT UPPER ARM IS ASYMPTOMATIC, PATENT WITH NO BLOOD RETURN. ABODMEN IS DISTENDED AND FIRM. BOWEL SOUNDS HYPO. WILL NOTIFY PHYSICIAN OF DISTENDED ABD AND CONTINUE CURRENT CARE.
--- NOTE | 2018-12-26 13:43 | NUR ---
PT MORE AWAKE THIS AFTERNOON. RESTING IN BED AT THIS TIME. FAMILY AT BEDSIDE. ABD CONTINUES TO BE DISTENDED. PT HAS NOT VOIDED ALL SHIFT DESPITE HAVING HER SIT ON THE COMMODE. BLADDER SCAN PERFORMED AND FOUND 444ML IN BLADDER. PHYSICIAN NOTIFIED. WILL STRAIGHT CATH AND MONITOR.
--- NOTE | 2018-12-26 14:08 | NUR ---
STRAIGHT CATHED PATIENT AND DRAINED 200ML DARK URINE WITH SEDIMENT NOTED. ABDOMEN AND PELVIS STILL FEEL FIRM AND DISTENDED.
[2018-12-26 16:37] VITALS: BP 99/61
--- NOTE | 2018-12-26 17:56 | NUR ---
PT CONTINUES TO BE DISTENDED IN HER ABD. ONLY SMALL AMT OF STOOL RESULTED FROM SUPPOSITORY. MIRALAX GIVEN. PT STILL UNABLE TO VOID SINCE STRAIGHT CATH AT 1400. ENCOURAGED PT TO DRINK FLUIDS SHE HAS NOT HAD MUCH IN TODAY.
[2018-12-26 19:19] VITALS: BP 102/61
--- NOTE | 2018-12-27 05:04 | NUR ---
PATIENT ALERT AND ORIENTED X4 WITH SOME FORGETFULNESS. WEAKNESS WITH EXERTION AND SOA NOTED. AT BEDSIDE IN EARLY EVENING. PATIENT HAS A VERY POOR APPETITE. MELVIN WAS PLACED BY AM NURSE AND NAV URINE NOTED, HOWEVER, NOT MUCH DURING THE NIGHT. PATIENTS FLUID WAS PUSHED BY THIS NURSE DURING THE NIGHT. ABDOMEN REMAINS DISTENDED - KUB DID NOT NOTE ANY BLOCKAGES OR OBSTRUCTIONS. IV PATENT. GIVEN SUPPOSITORY FOR BM ON AM SHIFT WITH SMALL AMOUNT REPORTED BY AM NURSE. ALSO GIVEN MIRALAX BY AM NURSE, HOWEVER, NO RESULTS NOTED AT TIME OF THIS NOTE. GIVEN ZOFRAN AND TYLENOL DURING THE NIGHT WITH GOOD RESULTS. PATIENT STATES SHE FEELS BETTER AND WAS ABLE TO SLEEP. WILL MONITOR.
--- NOTE | 2018-12-27 06:38 | NUR ---
THIS NURSE SCANNED PATIENTS BLADDER AT 0620 WHICH READ 283ML. THIS WAS AFTER HER MELVIN WAS EMPTIED OF 200ML OF NAV URINE.
[2018-12-27 08:30] VITALS: BP 110/60
--- NOTE | 2018-12-27 17:04 | NUR ---
ASSUMED CARE OF PATIENT AT 0715, PATIENT ALERT WITH CONFUSION. PATIENT UP WITH ASSIST X 2 WITH GAIT BELT AND WALKER. PATIENT DENIES PAIN THIS SHIFT. PATIENT HAS POOR APPETITE. PATIENT HAS MELVIN CATHETER IN PLACE DUE TO RETENTION. PATIENT UP TO THE CHAIR THIS AM FOR BREAKFAST, PATIENT NEEDS SETUP. WILL CONTINUE TO MONITOR.
--- NOTE | 2018-12-28 04:23 | NUR ---
PATIENT ALERT AND ORIENTED X4. C/O BEING HOT AND HAD THIS NURSE TAKE ALL OF HER COVERS OFF WELL HER GOWN - NO FEVER NOTED. FAMILY IN EARLY EVENING AND PATIENT HAD THIS NURSE CALL HER TO SEND ONE OF HER DAUGHTERS BACK TO THE HOSPITAL TO STAY THE NIGHT WITH HER (ALINE). PATIENT WAS ANXIOUS AND ANGRY UNTIL SHE WAS TOLD THAT ALINE WAS ON HER WAY. 02NC WITH SOA UPON SLIGHTEST OF EXERTION. GIVEN TYLENOL AND ZOSYN FOR ABDOMINAL DISCOMFORT. MELVIN TO D/D WITH NAV URINE. WILL MONITOR.
--- NOTE | 2018-12-28 09:50 | NUR ---
SW reviewed chart and spoke with nursing. Pt is medically stable for discharge to post-acute today. No cardiology interventions anticipated. KIERA met with pt and her dtr, Sara, at bedside. SW provided update and discussed need for insurance authorization, in order to d/c pt to [facility] today. Pt's dtr verbalized understanding. Pt's dtr asked about getting pt home O2 when she is ready for discharge home. KIERA explained that pt must qualify for home O2 per insurance guidelines. Otherwise, there are options to rent O2 if they are wanting to have it in the home. landscape architect and planner to fax updates to [facility]. Chart copy ordered. KIERA is following to assist as needed with discharge planning.
[2018-12-28 09:52] VITALS: BP 117/62
--- NOTE | 2018-12-28 10:01 | NUR ---
dp faxed updates on patient to [facility], patient likely ready to dc upon insurance authorization.
--- NOTE | 2018-12-28 10:31 | NUR ---
dp sent updates to [facility], patient ready dc once insurance authorization has been obtained. DP called to confirm BS received faxed updates, dp called and left message with jacquie/Rima and told her to call if she did not receive the updates. DP also faxed again to a number Irma/BS left on voicemal [phone]
--- NOTE | 2018-12-28 10:37 | NUR ---
dp sent updates to [facility] for patient Swing bed, agustíntieyue ready once insurance authorization is obtained. dp called facility to make sure they received faxed updates. CASEY spoke with Bisi at [facility] she asked to refax to [phone]. DP refaxed and requested Bisi to call if she does not receive. Bisi also related there is a new physician on case and physician has to still look over papers.
[2018-12-28] MEDS ORDERED: COREG6.25 MG PO (12:53)
--- NOTE | 2018-12-28 18:12 | NUR ---
ASSUMED CARE OF PATIENT AT 0715, PATIENT ALERT WITH CONFUSION. PATIENT DENIED PAIN THIS AM, BUT C/O ABDOMEN DISCOMFORT AFTER LUNCH WITH ABDOMEN, PATIENT GIVEN TYLENOL 650 MG. PATIENT ASSISTED UP TO THE CHAIR BY DAUGHTER THIS AM. PT/OT WORKED WITH PATIENT TODAY. PATIENT CONTINUES TO HAVE SOB WITH EXERTION. PATIENT ABDOMEN DISTENDED AND FIRM. DR CONCEPCION HERE THIS AM AND ORDERED MIRALAX, BISACODYL SUPP, AND FLEETS ENEMA IF NO BM AFTER THE FIRST TWO. DR CONCEPCION WAS GOING TO DISCHARGE PATIENT TO [facility] TODAY IF SHE HAD A BOWEL MOVEMENT. PATIENT GIVEN FLEETS ENEMA, WILL AWAIT RESULTS. FAMILY AT BEDSIDE ALL DAY. PATIENT HAS POOR APPETITE, WITH SUPPLEMENTS GIVEN WITH MEALS. TRISTAN CONTINUE TO MONITOR.
[2018-12-28 18:51] VITALS: BP 108/61
--- NOTE | 2018-12-29 05:37 | NUR ---
PATIENTS CARES WERE ASSUMED AT SHIFT CHANGE. PATIENT WAS ASSESSED AND MEDS WERE PASSED.HOURLY ROUNDING WAS DONE AND PATIENT DID APPER TO BE SLEEPING WELL. PATIENT DID NOT CALL OUT OR REQUEST ANY HELP OR ASSISTANCE. PATIENT WAS GIVEN 150CC [place] [facility] TO PROMOTE A BM. OF 529 NO RESULTS. ORDER DOES STATE ANOTHER 150 CC AT 0800 IF NO SUCCESS. PATIENTS ALARM IS ON AND THE BED IS IN A LOW AND LOCKED POSITION.
[2018-12-29 08:46] VITALS: BP 108/67
--- NOTE | 2018-12-29 11:32 | NUR ---
renae called Rima at [facility] to let her know patient is ready today. [facility]
[2018-12-29] MEDS ORDERED: BISACODYL SUPP10 MG RECTAL (13:42)
--- NOTE | 2018-12-29 15:13 | NUR ---
ASSUMED CARE OF PATIENT AT 0715, PATIENT ALERT WITH PERIODS OF CONFUSION. PATIENT DENIES PAIN THIS SHIFT. PATIENT UP TO THE CHAIR WITH OT, MOD-MAX ASSIST WITH GAIT BELT AND WALKER. PATIENT'S ABDOMEN DISTENDED AND FIRM. PATIENT HAD A LARGE LOOSE STOOL AFTER LUNCH. PATIENT HAS RETENTION. MELVIN CATHETER LEFT IN PLACE PER DR CHOPRA. PATIENT WAS GIVEN MAGNESIUM CITRATE LASTNIGHT AND HAD 2 LARGE LOOSE STOOL OVERNIGHT. PATIENT HAS O2 AT 2 LITERS/NC, PATIENT HAS SOB WITH ANY EXERTION. PATIENT HAS POOR APPETITE, NEEDS SETUP AND HELP WITH EATING. DR CHOPRA HERE AND RECEIVED ORDER FOR DISCHARGE TO [facility], REPORT CALLED TO ERWIN/CHAYA AT THE FACILITY. ALL DISCHARGE PAPERWORK AND ALL PERSONAL BELONGINGS SENT WITH THE PATIENT. PRESENT FOR DISCHARGE.
--- NOTE | 2018-12-29 16:28 | NUR ---
DISCHARGE NOTE: KIERA reviewed chart and spoke with nursing and attending physician. Pt is medically stable for discharge to [facility]. Insurance authorization obtained. KIERA spoke with Rima at [facility], who states they are able to accept pt today. Wheelchair van transportation scheduled for 1500. store planner faxed discharge orders/summary and notified family. No additional SW needs identified at this time, but is available to assist should needs arise.
== END 2018-12-29 15:38 | DRG 682 ==
LOC: ER 15:09 → 2N 17:28 → EROBS 17:28 → SICU 17:28 → 2N 18:35 → SICU 12-23 15:51
PROVIDERS: Nurse Practitioner Gerontology; Physician Assistant; ADMIT Hospitalist
DX: N17.9 Acute kidney failure, unspecified (principal); I50.23 Acute on chronic systolic (congestive) heart failure; N39.0 Urinary tract infection, site not specified; I42.9 Cardiomyopathy, unspecified; R18.8 Other ascites; Z68.1 Body mass index [BMI] 19.9 or less, adult; I13.2 Hypertensive heart and chronic kidney disease with heart failure and with stage 5 chronic kidney disease, or end stage renal disease; E78.5 Hyperlipidemia, unspecified; R14.0 Abdominal distension (gaseous); N18.5 Chronic kidney disease, stage 5; M19.90 Unspecified osteoarthritis, unspecified site; D69.6 Thrombocytopenia, unspecified; K59.00 Constipation, unspecified; E80.6 Other disorders of bilirubin metabolism; M62.84 Sarcopenia; B96.20 Unspecified Escherichia coli [E. coli] as the cause of diseases classified elsewhere; Z51.5 Encounter for palliative care; Z79.899 Other long term (current) drug therapy
CPT/HCPCS: 10081; 15002